=== PATIENT | female | born 1995 | race Caucasian/White ===

== ENCOUNTER 2020-03-18 13:13 | Outpatient (CLI) | payer OTHER, SELFPAY ==
--- NOTE | ~2020-03-18 | US_ITS ---
EXAMINATION: US OB <= 14 weeks fetus DATE: 03/18/2020 13:57 INDICATION: Early stage TECHNIQUE: Real-time transabdominal and transvaginal obstetric ultrasound. FINDINGS: No prior studies for comparison. The uterus measures 10.5 x 5.6 x 9.2 cm. There is an intrauterine gestational sac, with pole id entified. The crown rump length measures 6.73 cm, which correlates with a estimated gestational age of 13 weeks 1 days. heart tones are identified measuring 167 BPM. The ovaries are not visuali zed. No free fluid in the pelvis. IMPRESSION: 1. SL IUP with an EGA of 13 weeks, 1 days (EDC by current ultrasound of 09/22/2020). Reviewed, dictated and finalized at location A. IMPRESSION: 1. SL IUP with an EGA of 13 weeks, 1 days (EDC by current ultrasound of 020).
== END 2020-03-18 13:14 | disposition home or self-care (01) ==
LOC: ANHIMG 13:19
PROVIDERS: Visit Provider Nurse Practitioner Family
DX: Z34.01 Encounter for supervision of normal first pregnancy, first trimester (principal); Z3A.13 13 weeks gestation of pregnancy
CPT/HCPCS: 76801

== ENCOUNTER 2020-05-18 10:57 | Outpatient (CLI) | payer OTHER, SELFPAY ==
--- NOTE | ~2020-05-18 | US_ITS ---
EXAMINATION: US OB /maternal detail DATE: 05/18/2020 12:00 INDICATION: survey TECHNIQUE: Multiple obstetric sonographic images performed. FINDINGS: 03/18/2020 There is a single living fetus in vertex presentation. The placenta is posterior without placenta pr evia. Placental margin is 5 cm to the cervix. Amniotic fluid volume is normal. cardiac activity and movement is noted with a heart rate of 148 beats per minute. The following anatomy was identified as normal: 4 chamber heart 3 vessel cord cord insertion kidneys urinary bladder stomach spine diaphragm ventricles cisterna magna cerebellum The following biometric data were obtained: BPD: 51mm corresponds to gestational age 21 weeks 3 days. Head circumference: 191 mm corresponds to gestational age 21 weeks 3 days. Abdominal circumference: 159 mm corresponds to gestational age 21 weeks 0 days. Femur length: 35 mm corresponds to gestational age 21 weeks 0 days. Head circumference to abdominal circumference ratio: 1.21 (normal range for expected gestational age is 1.06-1.24). Estimated weight: 394 grams +/- 59 grams using Hadlock method. IMPRESSION: 1: Single living intrauterine with an estimated gestational age of 21weeks 6days by initial ultrasound measurements, with an EDC of 09/22/2020 in vertex presentation. Appropriate interval feta l growth. 2. Normal survey. Reviewed, dictated and finalized at location A. IMPRESSION: 1: Single living intrauterine with an estimated gestational age of 21 weeks 6days by initial ultrasound measurements, with an EDC of 09/22/2020 in ve rtex presentation. Appropriate interval growth. 2. Normal survey.
== END 2020-05-18 10:58 | disposition home or self-care (01) ==
PROVIDERS: Visit Provider Nurse Practitioner Family
DX: Z34.02 Encounter for supervision of normal first pregnancy, second trimester (principal); Z3A.00 Weeks of gestation of pregnancy not specified
CPT/HCPCS: 76805